=== PATIENT | female | born 1960 | race Caucasian/White ===

== ENCOUNTER 2022-09-18 19:28 | Emergency (ER) | payer BC ==
[~2022-09-18] VITALS: Ht 157.5 cm; Wt 72.2 kg
[2022-09-18 19:37] VITALS: BP 144/63
[2022-09-18] MEDS ORDERED: BO1 TP (20:10)
[2022-09-18] MEDS ORDERED: CEPH500C2 MT (20:10)
== END 2022-09-18 20:30 | disposition home or self-care (01) ==
LOC: ER 19:28
DX: S90.561A Insect bite (nonvenomous), right ankle, initial encounter (principal); E11.9 Type 2 diabetes mellitus without complications; W57.XXXA Bitten or stung by nonvenomous insect and other nonvenomous arthropods, initial encounter; Y93.89 Activity, other specified; Y92.89 Other specified places as the place of occurrence of the external cause; Y99.8 Other external cause status
CPT/HCPCS: 99283